=== PATIENT | male | born 1990 | race Asian ===

== ENCOUNTER → 2024-02-02 | Outpatient (BNVA) | payer MEDICAID, SELFPAY | END | disposition home or self-care (01) | PROVIDERS: PCP Nurse Practitioner Family; Referring Provider Nurse Practitioner Family; Visit Provider Urology | DX: N40.0 Benign prostatic hyperplasia without lower urinary tract symptoms (principal); Z87.442 Personal history of urinary calculi; I10 Essential (primary) hypertension; E66.01 Morbid (severe) obesity due to excess calories; Z68.42 Body mass index [BMI] 45.0-49.9, adult | CPT/HCPCS: 81003; 99212; G0463 ==

== ENCOUNTER → 2024-06-16 | Outpatient (CLI) | payer MEDICAID, SELFPAY ==
--- NOTE | 2024-06-16 10:00 | XR_ITS ---
Examination: Abdomen sonogram, complete Date and time of exam: June 16, 2024 1021 hours INDICATIONS: Diagnosis unspecified abdominal pain months. Technique: Multiple real-time grayscale transabdominal sonographic images of the abdomen have been obtained. Findings: 14 mm stone in the gallbladder neck Gallbladder wall 0.3 cm no edema Common bile duct 0.3 cm Pancreatic head 3.4 cm Aorta not enlarged. Liver 18.3 cm fatty infiltration Normal hepatopedal portal venous flow Patent IVC Right kidney 10.2 cm renal cortex 2.2 cm Left kidney 11.9 cm cortex 2.6 cm Mild renal parenchymal scar formation Spleen 11.2 cm IMPRESSION: Cholelithiasis, negative for cholecystitis Mild hepatomegaly fatty liver
== END | disposition home or self-care (01) ==
PROVIDERS: PCP Internal Medicine Gastroenterology; Referring Provider Internal Medicine Gastroenterology; Visit Provider Internal Medicine Gastroenterology
DX: K80.20 Calculus of gallbladder without cholecystitis without obstruction (principal); K76.0 Fatty (change of) liver, not elsewhere classified
CPT/HCPCS: 76700

== ENCOUNTER 2024-08-21 09:25 | Emergency (ER) | payer MEDICAID, SELFPAY ==
[2024-08-21 09:25] VITALS: BMI 45.6
[2024-08-21 09:36] VITALS: BP 165/100; BP 170/122; PULSE 101; RESP 18; TEMP 36.7; O2SAT 95
--- NOTE | 2024-08-21 09:44 | XR_ITS ---
Examination: CT brain head without contrast. 2-D sagittal coronal reconstructions Date and time of exam:June 21, 2024 1040 hrs. Indications: Dizziness this morning CTDI: vol (mGy):66.3 DLP: (mGycm):1326 Technique: Multiple CT axial sections of the brain have been obtained, 5 mm slice thickness. Contrast has not been administered. 2-D sagittal, coronal reconstructions have been obtained Low dose protocols were performed. One or more of the following dose reduction techniques were used; automated exposure control, adjustment of the mA and/or KV according to patient size, use of iterative reconstruction technique. Findings: No significant ventricular enlargement. Intra-axial or extra-axial hemorrhage density is not seen. No mass effect or midline shift Basal cisterns are not remarkable. Fourth ventricle is midline. Cranial vault intact. Impression: Negative for acute hemorrhage, mass effect or midline shift
--- NOTE | 2024-08-21 09:44 | XR_ITS ---
Examination: PA lateral chest 2 views Technique: Upright PA lateral chest 2 views Indications: Headache dizziness today Findings: Normal heart size. No pneumonia or pulmonary edema. Intact osseous structures Impression: No pneumonia or pulmonary edema
--- NOTE | 2024-08-21 09:44 | EKG_ITS ---
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
--- NOTE | 2024-08-21 09:45 | PD.EDRME ---
Rapid Medical Screening Exam RME Arrival date/time: 08/21/24 09:25 33-year-old male presents to the emerged part today for complaints of dizziness Chief Complaint: Dizziness Time Seen by Provider: 08/21/24 09:30 Vital signs: Vital Signs Temperature 98.1 F 08/21/24 09:36 Pulse Rate 101 H 08/21/24 09:36 Respiratory Rate 18 08/21/24 09:36 Blood Pressure 170/122 H 08/21/24 09:36 Pulse Oximetry (%) 95 08/21/24 09:36 Oxygen Delivery Method Room Air 08/21/24 09:36
[2024-08-21 09:54] VITALS: BP 170/122; PULSE 101
[2024-08-21] MEDS: cloNIDine HCL 0.1 MG TABLET 0.2 MG PO (09:54)
[2024-08-21] MEDS: MECLIZINE HCL 25 MG TABLET 50 MG PO (09:54)
[2024-08-21 10:50] LABS: Alanine Aminotransferase 48 U/L (10-49); Albumin, Serum 4.4 gm/dL (3.5-5.0); Albumin/Globulin Ratio 1.3 (1.2-2.2); Alkaline Phosphatase 62 U/L (46-116); Anion Gap 9 (7-16); Aspartate Amino Transferase 27 U/L (0-34); BUN/Creatinine Ratio 9 Ratio (12-20); Bilirubin,Total 0.6 mg/dL (0.3-1.2); Blood Urea Nitrogen 12 mg/dL (9-23); Calcium 8.6 mg/dL (8.3-10.6); Calcium (Corrected) 8.6 mg/dL (8.5-10.1); Carbon Dioxide 29.4 mMol/L (20.0-31.0); Chloride 103 mMol/L (98-107); Creatinine (Component) 1.3 mg/dL (0.6-1.3); Estimated Creatinine Clearance 108.1 mL/min (>60); Globulin 3.3 gm/dL (2.3-3.5); Glucose 171 mg/dL (74-106); Magnesium 1.9 mg/dL (1.6-2.6); Osmolality,Calculated 284 (275-295); Potassium 4.1 mMol/L (3.4-5.1); Sodium 141 mMol/L (136-145); Total Protein 7.7 gm/dL (5.7-8.2); Troponin I < 0.002 ng/mL (0.0-0.045); eGFR > 60 See Note
[2024-08-21 10:52] LABS: Basophils # (Auto) 0.1 Thou/mm3 (0.0-0.2); Basophils % (Auto) 1 % (0-2.5); Eosinophils # (Auto) 0.3 Thou/mm3 (0.0-0.5); Eosinophils % (Auto) 3 % (0-10); Hematocrit 50.4 % (41.0-53.0); Hemoglobin 17.5 g/dL (13.5-16.0); Immature Granulocytes % (Auto) 0 % (0-0); Immature Granulocytes Auto 0.03 Thou/mm3 (0.00-0.00); Lymphocytes # (Auto) 2.4 Thou/mm3 (1.0-4.8); Lymphocytes % (Auto) 28 % (10-50); Mean Corpuscular HGB Conc 34.7 g/dl (31.0-37.0); Mean Corpuscular Hemoglobin 31.4 pg (25.0-35.0); Mean Corpuscular Volume 91 fL (80-100); Monocytes # (Auto) 0.8 Thou/mm3 (0.0-0.8); Monocytes % (Auto) 9 % (0-12); Neutrophils % (Auto) 59 % (37-80); Nucleated Red Blood Cell % 0 /100 WBC (0); Platelet Count 256 Thou/mm3 (140-440); RDW Standard Deviation 42.5 fL (35.1-43.9); Red Blood Count 5.57 Miln/mm3 (4.50-5.90); White Blood Count 8.5 Thou/mm3 (3.8-10.6)
--- NOTE | 2024-08-21 12:39 | PD.EDDIZZY ---
ED Dizzyness RME/HPI General Chief Complaint: Dizziness Stated Complaint: DIZZINESS Time Seen by Provider: 08/21/24 09:30 Arrival date/time: 08/21/24 09:25 RME / HPI RME / HPI Narrative: 33-year-old male presents to the emerged part today for complaints of dizziness. Onset of symptoms since earlier today, severity of symptoms moderate. Denies any chest pain denies any headache denies any other complaints patient is ambulatory. Denies any trauma to the head or fever. In the triage patient was noted to have a blood pressure of 170/122. Patient is not taking any blood pressure medications Related Data Home Medications ?Medication ?Instructions ?Recorded ?Confirmed potassium citrate 15 mEq (1,620 15 meq PO BID 08/04/23 02/02/24 mg) tablet,extended release Previous Rx's ?Medication ?Instructions ?Recorded lisinopril 10 mg tablet 10 mg PO QDAY #30 tabs 08/21/24 meclizine 50 mg tablet 50 mg PO BID PRN dizziness #30 tabs 08/21/24 Allergies Allergy/AdvReac Type Severity Reaction Status Date / Time NKA* Allergy Uncoded 08/21/24 09:27 Review of Systems Review of Systems Narrative Review of Systems: Review of system reviewed and within normal limits except mentioned in HPI ED Exam Narrative Physical exam: VITAL SIGNS: Reviewed. GENERAL APPEARANCE: Alert and interactive, follows commands, no acute distress, HEAD AND FACE: Non-traumatic. ENT: PERRL, pink conjunctivitis, eyelid no trauma, Mucous membrane moist. NECK: Supple, nontender, no nuchal rigidity. CHEST: No tenderness, no crepitus, no paradoxical movement, no retractions. LUNGS: Clear, well ventilated, symmetric, no rales, no wheezing, no ronchi, no stridor, good breath sounds bilaterally. HEART: Regular rate, regular rhythm, no murmur, no gallops. ABDOMEN: Soft, positive bowel sounds, nondistended, no guarding, nontender, no rebound, no masses, RECTAL: Deferred. GENITAL: Deferred. NEUROLOGICAL: Gross motor function intact sensory function intact, Appropriate for age. MUSCULOSKELETAL: low back nontender, full range of motion. EXTREMITIES: Nontender, full range of motion. SKIN: Color pink, dry, no rash, no lacerations, no abrasions, no contusions. LYMPHATICS: Deferred. Course Quality Measures none Orders Category Date Time Status EKG (ED ONLY) *Do not use* NOW Care 08/21/24 09:[address] head/brain wo con Stat Exams 08/21/24 09:44 Completed EKG (ED Only) Stat Exams 08/21/24 09:44 Draft XR chest 2V Stat Exams 08/21/24 09:44 Completed CBC Stat Lab 08/21/24 10:00 Completed Comprehensive Metabolic Panel Stat Lab 08/21/24 10:00 Completed Mag [Magnesium] Stat Lab 08/21/24 10:00 Completed Troponin I Stat Lab 08/21/24 10:00 Completed Meclizine HCl [Antivert] Med 08/21/24 09:44 Discontinued 50 mg PO X1 ONE cloNIDine HCL [Catapres] Med 08/21/24 09:45 Discontinued 0.2 mg PO X1 ONE Vital Signs Vital signs: Vital Signs Temperature 98.1 F 08/21/24 09:36 Pulse Rate 101 H 08/21/24 09:36 Respiratory Rate 18 08/21/24 09:36 Blood Pressure 170/122 H 08/21/24 09:36 Pulse Oximetry (%) 95 08/21/24 09:36 Oxygen Delivery Method Room Air 08/21/24 09:36 Dizziness MDM Narrative MDM Narrative:: 33-year-old male presents to the emerged part today for complaints of dizziness. Onset of symptoms since earlier today, severity of symptoms moderate. Denies any chest pain denies any headache denies any other complaints patient is ambulatory. Denies any trauma to the head or fever. In the triage patient was noted to have a blood pressure of 170/122. Patient is not taking any blood pressure medications Patient's workup today all came back normal including normal troponin, EKG showed sinus tachycardia, ventricular rate 102 bpm, CT scan of the head came back unremarkable. I personally reviewed and interpreted the x-ray of this patient. There is no acute abnormalities found, no infiltrates no pneumothorax no hemothorax normal chest x-ray. Review of other structures was without significant abnormal findings also. I additionally reviewed the radiologist report and agree with the interpretation. Patient was given meclizine and clonidine, blood pressure was noted to be 138/56 as taken by me. And patient's dizziness is completely gone. Patient was advised to lose weight and closely follow-up with PCP to workup on his elevated blood sugar today which is 178. Patient has significant history of diabetes in the family. Patient appears nontoxic and hemodynamically stable. Patient discharged home and instructed to follow-up with primary care provider in 24 to 48 hours. Instructed to return to the emergency department immediately if worsening of symptoms Patient data External records reviewed:: None Clinical information provided by:: patient and family Social determinants that could affect healthcare access:: none Patient has the following chronic illnesses:: None How is presenting disease/condition affected by chronic disease/condition?: no chronic disease Evaluation data The following diagnostics were reviewed and interpreted by me:: lab results, radiology exam(s) and EKG tracing(s) Lab and/or radiology exams considered but not ordered:: None Interpretation Summary: See results MDM Medications / Prescriptions Medications or Prescriptions considered but not ordered:: None Medication administrations:: Medication Administration History Discontinued Medications Clonidine (Clonidine Hcl 0.1 Mg Tablet) 0.2 mg PO X1 ONE Stop: 08/21/24 09:46 Last Admin: 08/21/24 09:54 Dose: 0.2 mg Documented By: QI Meclizine HCl (Meclizine Hcl 25 Mg Tablet) 50 mg PO X1 ONE Stop: 08/21/24 09:45 Last Admin: 08/21/24 09:54 Dose: 50 mg Documented By: QI Clonidine and meclizine Consultations Consultation(s) initiated? (list below): No Diagnosis Dizziness Differential Diagnosis: benign paroxysmal positional vertigo, orthostatic hypotension and cerebrovascular accident Most likely diagnosis given after review of the tests above:: Dizziness, elevated blood pressure Admission Indicated Admission indicated?: not indicated Explain why admission is indicated or not indicated:: Stable Admission Request Was there a request for admission?: No Disposition Plan Disposition Plan: Discharge Discharge Attestation Discharge Attestation: The patient and all family members were given an opportunity to ask questions and understood the discharge instructions. Discharge instructions specifically effects, indications for sooner follow up or return to the emergency department, and the expected course of current diagnosis. Patient condition: Stable Discharge Plan Plan Patient Disposition: HOME (Self Care) Discharge Disposition comment: Stable Prescriptions/Referrals Prescriptions/Med Rec: New meclizine 50 mg tablet 50 mg PO BID PRN (Reason: dizziness) Qty: 30 0RF lisinopril 10 mg tablet 10 mg PO QDAY Qty: 30 0RF No Action potassium citrate 15 mEq tablet extended release 15 meq PO BID Referrals: Mady Loco FNP [Primary Care Provider] - In 1 week Problem List Clinical Impression: Dizziness, Blood pressure elevated without history of HTN Patient/Caregiver Discharge Instructions Discharge Activity: activity as tolerated Education Materials: Vertigo Medicine Tx Additional Instructions: Thank you for the opportunity for serving you today. You are stable for discharged . You are advised to: Follow-up with your PCP in 1 to 2 days Return to ED for worsening of symptoms Increase oral fluids Take medication as prescribed Change your rice to either brown rice or Basmati rice Regular exercise 1 to 2 hours a day Stop drinking sugary drinks Make sure you follow-up with your PCP for diabetic workup Print Language: Welsh Stand Alone Forms: Ana Award Info., Patient Portal Info Letter IVIS/BOBBY Supervising Physician IVIS/BOBBY Supervising Physician: MD Maria Isabel
[2024-08-21 13:56] VITALS: BP 144/94; PULSE 92; RESP 18; TEMP 36.7; O2SAT 95
== END 2024-08-21 14:32 | disposition home or self-care (01) ==
PROVIDERS: Nurse Practitioner Primary Care; Emergency Provider Family Medicine; PCP Nurse Practitioner Family
DX: R42 Dizziness and giddiness (principal); R03.0 Elevated blood-pressure reading, without diagnosis of hypertension; R00.0 Tachycardia, unspecified
CPT/HCPCS: 36415; 70450; 71046; 80053; 83735; 84484; 85025; 93005; 99284; A9270

== ENCOUNTER → 2024-08-27 | Outpatient (BNVA) | payer MEDICAID, SELFPAY | END | disposition home or self-care (01) | PROVIDERS: PCP Nurse Practitioner Family; Referring Provider Nurse Practitioner Family; Visit Provider Urology | DX: N40.0 Benign prostatic hyperplasia without lower urinary tract symptoms (principal); Z87.442 Personal history of urinary calculi; I10 Essential (primary) hypertension; E66.01 Morbid (severe) obesity due to excess calories; Z68.42 Body mass index [BMI] 45.0-49.9, adult | CPT/HCPCS: 81003; 99212; G0463 ==